=== PATIENT | female | born 1940 | race Caucasian/White ===

== ENCOUNTER 2021-01-21 09:36 | Emergency (ER) | payer MEDICARE ==
[~2021-01-21] VITALS: Ht 154.9 cm; Wt 78.0 kg
[~2021-01-21 09:36] MED LIST: ASPIR 8181 MG; ATORVASTATIN CA20 MG PO; GABAPENTIN100 MG; HYDROCHLOROTHIA25 MG; INSULIN ASPART; LANTUS SOL300 UNIT/3 SQ; MELATONIN3 MG PO; METOPROLOL SUCC25 MG; VITAMIN B-121000 MCG PO; Z.0.ALLOPURINOL300 M PO; Z.0.DIOVAN HCT 80-1 PO; Z.0.GLYBURIDE5 MG PO; Z.0.LIPITOR40 MG PO; [UNRECOGNIZED DRUG - OTHER] PO; [UNRECOGNIZED DRUG - OTHER] SQ
== END 2021-01-21 10:10 | disposition home or self-care (01) ==
LOC: ER 10:02
DX: G51.0 Bell's palsy (principal); I10 Essential (primary) hypertension; E11.9 Type 2 diabetes mellitus without complications; E03.9 Hypothyroidism, unspecified; E78.5 Hyperlipidemia, unspecified; K21.9 Gastro-esophageal reflux disease without esophagitis
CPT/HCPCS: 93005; 99282

== ENCOUNTER 2021-12-26 15:40 | Emergency (ER) | payer MEDICARE, OTHER ==
[~2021-12-26] VITALS: Ht 152.4 cm; Wt 78.5 kg
[2021-12-26] MEDS ORDERED: ACETAMINOPHEN 325 MG TAB PO ONE (16:00)
[2021-12-26] MEDS ORDERED: BACITRACIN ZINC 0.9GM TP ONE ×2 (16:00→16:11)
[2021-12-26] MEDS ORDERED: MUPIROCIN22 GM TOP (16:05)
[2021-12-26] MEDS ORDERED: ACETAMINOPHEN500 MG PO (16:05)
[2021-12-26] MEDS ORDERED: ACETAMINOPHEN 325 MG TAB ONE (16:11)
[2021-12-26] MEDS ORDERED: METOPROLOL SUCC25 MG PO (16:23)
[2021-12-26] MEDS ORDERED: STOOL SOFTENER100 M1 (16:23)
[2021-12-26] MEDS ORDERED: POTASSIUM600 MG (16:23)
[2021-12-26] MEDS ORDERED: TRESIBA100 UNIT/1 (16:23)
[2021-12-26] MEDS ORDERED: OZEMPIC0.25 MG/0. SC (16:23)
[2021-12-26] MEDS ORDERED: HUMALOG100 UNIT/3 SQ (16:23)
[2021-12-26] MEDS ORDERED: VITAMIN E400 UNI1 PO (16:23)
[2021-12-26] MEDS ORDERED: VITAMIN D350 MCG (16:23)
== END 2021-12-26 17:45 | disposition home or self-care (01) ==
LOC: FSED 15:50
DX: S52.022A Displaced fracture of olecranon process without intraarticular extension of left ulna, initial encounter for closed fracture (principal); S61.411A Laceration without foreign body of right hand, initial encounter; S00.83XA Contusion of other part of head, initial encounter; W01.0XXA Fall on same level from slipping, tripping and stumbling without subsequent striking against object, initial encounter; Y93.01 Activity, walking, marching and hiking; Y92.512 Supermarket, store or market as the place of occurrence of the external cause
CPT/HCPCS: 70450; 70486; 99284

== ENCOUNTER → 2022-01-22 | Outpatient (CLI) | payer MEDICARE ==
[~2022-01-22] MED LIST changes: +ACETAMINOPHEN500 MG PO; +HUMALOG100 UNIT/3 SQ; +METOPROLOL SUCC25 MG PO; +MUPIROCIN22 GM TOP; +OZEMPIC0.25 MG/0. SC; +POTASSIUM600 MG; +STOOL SOFTENER100 M1; +TRESIBA100 UNIT/1; +VITAMIN D350 MCG; +VITAMIN E400 UNI1 PO
== END ==
LOC: SLEEP 19:33
PROVIDERS: ATTEND Family Medicine
DX: G47.33 Obstructive sleep apnea (adult) (pediatric) (principal); E66.01 Morbid (severe) obesity due to excess calories; Z68.34 Body mass index [BMI] 34.0-34.9, adult
CPT/HCPCS: 95811; U0002

== ENCOUNTER 2022-03-11 15:12 | Emergency (ER) | payer MEDICARE ==
[~2022-03-11] VITALS: Ht 154.9 cm; Wt 78.5 kg
[2022-03-11] MEDS ORDERED: SODIUM CHLORIDE 0.9% 1000ML 1,000 ML IV STA (15:57)
[2022-03-11 16:22] LABS: INR 0.88; PARTIAL THROMBOPLASTIN TIME 25.6 seconds (23.8-35.5); PROTHROMBIN TIME 12.8 seconds (11.9-14.5)
[2022-03-11 16:32] LABS: ALBUMIN 3.1 g/dL (3.5-5.0); ANION GAP 17.2 mmol/L (8-16); CALCIUM 8.8 mg/dL (8.4-10.2); CREATININE, SERUM 1.79 mg/dL (0.57-1.11); MAGNESIUM 1.3 MG/DL (1.3-2.1); POTASSIUM 3.2 mmol/L (3.5-5.1)
[2022-03-11 16:38] LABS: CREATINE KINASE MB 2.7 ng/mL (0-5.0)
[2022-03-11 16:43] LABS: CLARITY,URINE CLOUDY (CLEAR); COLOR,URINE AMBER (YELLOW); KETONES,URINE TRACE (NEGATIVE); LEUKOCYTE ESTERASE ,URINE LARGE (NEGATIVE); NITRITE,URINE POSITIVE (NEGATIVE); PROTEIN,URINE DIPSTICK 2+ (NEGATIVE); URINE UROBILINOGEN 1 mg/dL (0.2 - 1)
[2022-03-11 16:56] LABS: BASOPHILS # (AUTO) 0.1 (0.0-0.1); BASOPHILS % 0.6 % (0.0-1.0); EOSINOPHILS # (AUTO) 0.4 (0.0-0.4); EOSINOPHILS % 2.6 % (0.0-6.0); HEMATOCRIT 37.4 % (34.2-44.1); HEMOGLOBIN 12.3 g/dL (12.0-16.0); LYMPHOCYTES # (AUTO) 2.3 (1.0-3.2); LYMPHOCYTES % 16.7 % (18.0-39.1); MEAN CORPUSCULAR HGB CONC 32.9 g/dL (31-35); MEAN CORPUSCULAR VOLUME 100.3 fL (81-99); MONOCYTES # (AUTO) 1.3 (0.2-0.8); MONOCYTES % 9.4 % (4.4-11.3); NEUTROPHILS # (AUTO) 9.6 (2.1-6.9); NEUTROPHILS % 70.2 % (38.7-80.0); PLATELET COUNT 345 x10e3/uL (140-360); RED BLOOD COUNT 3.73 x10e6/uL (3.6-5.1); RED CELL DISTRIBUTION WIDTH 13.6 % (11.7-14.4)
[2022-03-11 16:58] LABS: BACTERIA,URINE MANY /HPF; RBC,URINE 0-5 /HPF (0-5); WBC,URINE (MAN) 21-50 /HPF (0-5)
== END 2022-03-11 21:12 | disposition other institution (70) ==
LOC: ER 15:44
DX: S06.5X0A Traumatic subdural hemorrhage without loss of consciousness, initial encounter (principal); W19.XXXA Unspecified fall, initial encounter; R29.6 Repeated falls; N39.0 Urinary tract infection, site not specified; B96.20 Unspecified Escherichia coli [E. coli] as the cause of diseases classified elsewhere
CPT/HCPCS: 36415; 70450; 71045; 72125; 72192; 80053; 81001; 82550; 82553; 83605; 83735; 83880; 84484; 85025; 85610; 85730; 87040; 87086; 87186; 93005; 99284; J0696; J7030; U0002